=== PATIENT | male | born 1990 | race Caucasian/White ===

== ENCOUNTER 2018-03-02 18:35 | Emergency (ER) | payer OTHER, MEDICAID ==
[2018-03-02 18:43] VITALS: BP 146/88
--- NOTE | 2018-03-02 20:25 | ED Physician Documentation ---
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, and he bandaged it but it continues to bleed.), Today Timing - details: Abrupt onset, Still present (it did not want to stop bleeding , so here for eval.) Worsened by: Palpating Associated symptoms: No: Weakness, Numbness Similar symptoms before: Has not had sx before Recently seen: Not recently seen Review of Systems Neurologic: denies: Focal weakness, Numbness PD PAST MEDICAL HISTORY - Past Medical History Past Medical History: Yes Cardiovascular: None Respiratory: None Endocrine/Autoimmune: None : Kidney stones - Past Surgical History Past Surgical History: No - Present Medications Home Medications: Ambulatory Orders Medication Instructions Recorded Confirmed No Known Home Medications [No 03/02/18 03/02/18 Known Home Medications] - Allergies Allergies/Adverse Reactions: Allergies Allergy/AdvReac Type Severity Reaction Status Date / Time No Known Drug Allergies Allergy Verified 03/02/18 18:42 - Social History Does the pt smoke?: No Smoking Status: Never smoker Does the pt drink ETOH?: No Does the pt have substance abuse?: Yes - Immunizations Immunizations are current?: Yes PD ED PE NORMAL - Vitals Vital signs reviewed: Yes - General General: Alert and oriented X 3, No acute distress, Well developed/nourished - Derm Derm: Normal color, Warm and dry - Extremities Extremities: Other (right middle finger tip with partial thickness avulsion. Not at nailbed, is distal to that. No FB. ) - Neuro Neuro: Alert and oriented X 3, No motor deficit, No sensory deficit, Normal speech Results - Vitals Vitals: Vital Signs - 24 hr 03/02/18 03/02/18 18:39 21:03 Temperature 35.9 C L Heart Rate 86 Respiratory 18 17 Rate Blood Pressure 146/88 H O2 Saturation 95 Oxygen O2 Source Room air PD MEDICAL DECISION MAKING - ED course Complexity details: considered differential (the bleeding is about stopped here. Glue and steri-strips applied. His tetanus is updated. ), d/w patient Departure - Departure Disposition: 01 Home, Self Care Clinical Impression: Requires a booster tetanus Fingertip avulsion Qualifiers: Encounter type: initial encounter Qualified Code(s): S61.209A - Unspecified open wound of unspecified finger without damage to nail, initial encounter Condition: Stable Record reviewed to determine appropriate education?: Yes Instructions: ED Avulsion Dermal Comments: Let the tape and glue fall off on its own over a few days. Washing gently is okay. Tylenol or ibuprofen if needed for pains. He did receive a tetanus booster here. The skin should heal in over that area well as is not too deep of the wound. Recheck if signs of infection. Discharge Date/Time: 03/02/18 21:05
[2018-03-02] MEDS ORDERED: IBUPROFEN 600 MG TABLET PO STA (20:43)
[2018-03-02] MEDS ORDERED: ACETAMINOPHEN 325 MG TABLET PO STA (20:43)
[2018-03-02] MEDS ORDERED: TETANUS/DIPHTHERIA/PERTUSSIS 0.5 ML SYRINGE IM ONE (20:43)
== END 2018-03-02 21:05 | disposition home or self-care (01) ==
LOC: ED 18:35
DX: S61.210A Laceration without foreign body of right index finger without damage to nail, initial encounter (principal); W31.82XA Contact with other commercial machinery, initial encounter; Y99.0 Civilian activity done for income or pay
CPT/HCPCS: 1040M; 90471; 90715; 99282; 99283; A9270

== ENCOUNTER 2019-11-23 23:52 | Emergency (ER) | payer BC ==
[2019-11-23 23:59] VITALS: BP 153/77
--- NOTE | 2019-11-24 00:38 | ED Physician Documentation ---
History of Present Illness - Stated complaint Stated Complaint: HAND PX - Chief complaint Chief Complaint: Ext Problem - History obtained from History obtained from: Patient - History of Present Illness Timing: How many days ago (10) Improved by: nothing Worsened by: movement, particularly gripping/pinching motions/actions - Additonal information Additional information: c/o 10 days of gradual onset left hand pain. denies trauma. he is right hand dominant. pain is at left wrist and radiates to first three digits (thumb-middle fingers) Review of Systems Musculoskeletal: reports: Extremity pain. denies: Joint pain, Extremity swelling, Joint swelling Neurologic: denies: Focal weakness, Numbness PD PAST MEDICAL HISTORY - Past Medical History Past Medical History: Yes Cardiovascular: None Respiratory: None Neuro: None Endocrine/Autoimmune: None GI: None : Kidney stones HEENT: None Psych: None Musculoskeletal: None Derm: None - Past Surgical History Past Surgical History: No - Present Medications Home Medications: Ambulatory Orders Medication Instructions Recorded Confirmed No Known Home Medications 03/02/18 03/02/18 - Allergies Allergies/Adverse Reactions: Allergies Allergy/AdvReac Type Severity Reaction Status Date / Time No Known Drug Allergies Allergy Verified 11/23/19 23:59 - Social History Does the pt smoke?: No Smoking Status: Never smoker Does the pt drink ETOH?: No Does the pt have substance abuse?: Yes - Immunizations Immunizations are current?: Yes - POLST Patient has POLST: No PD ED PE NORMAL - Vitals Vital signs reviewed: Yes - General General: Alert and oriented X 3, No acute distress, Well developed/nourished - Derm Derm: Normal color, Warm and dry, No rash - Extremities Extremities: No deformity, No tenderness to palpate, Normal ROM s pain, No edema - Neuro Neuro: No motor deficit, No sensory deficit Results - Vitals Vitals: Oxygen O2 Source Room air PD MEDICAL DECISION MAKING - ED course Complexity details: considered differential, d/w patient ED course: unremarkable exam. Based on gradual onset and distribution of pain, would consider carpal tunnel syndrome more likely than alternative diagnoses at this time. Emergent testing not indicated at this time, instructed to return if worse, f/u with PMD next available appointment Departure - Departure Disposition: 01 Home, Self Care Clinical Impression: Wrist pain Condition: Good Instructions: ED Carpal Tunnel Forms: Activity restrictions Discharge Date/Time: 11/24/19 01:30
== END 2019-11-24 01:30 | disposition home or self-care (01) ==
LOC: ED 23:52
DX: M25.532 Pain in left wrist (principal)
CPT/HCPCS: 99282

== ENCOUNTER 2020-08-02 17:02 | Emergency (ER) | payer BC ==
--- NOTE | 2020-08-02 17:43 | ED Physician Documentation ---
History of Present Illness - Stated complaint Stated Complaint: RT HAND INJ - Chief complaint Chief Complaint: Ext Problem - Additonal information Additional information: 30-year-old male presents to the emergency department for evaluation of acute right hand pain after he punched a sheet rock wall last night and frustration. He is right-hand dominant no history of previous injury to this hand. He has mild swelling and tenderness over the mid fourth and fifth metacarpals. No deformity Review of Systems Constitutional: reports: Reviewed and negative Ears: reports: Reviewed and negative Nose: reports: Reviewed and negative Throat: reports: Reviewed and negative Cardiac: reports: Reviewed and negative Respiratory: reports: Dyspnea GI: reports: Reviewed and negative : reports: Reviewed and negative Skin: reports: Reviewed and negative Musculoskeletal: reports: Extremity pain (right hand), Extremity swelling (right hand) Neurologic: reports: Reviewed and negative PD PAST MEDICAL HISTORY - Past Medical History Cardiovascular: None Respiratory: None Neuro: None Endocrine/Autoimmune: None GI: None : Kidney stones HEENT: None Psych: None Musculoskeletal: None Derm: None - Past Surgical History Past Surgical History: No - Present Medications Home Medications: Ambulatory Orders Medication Instructions Recorded Confirmed Ibuprofen [Motrin] 600 mg PO Q6H PRN #30 tab 08/02/20 - Allergies Allergies/Adverse Reactions: Allergies Allergy/AdvReac Type Severity Reaction Status Date / Time No Known Drug Allergies Allergy Verified 08/02/20 17:22 - Social History Does the pt smoke?: No Smoking Status: Never smoker Does the pt drink ETOH?: No Does the pt have substance abuse?: Yes - Immunizations Immunizations are current?: Yes - POLST Patient has POLST: No PD ED PE EXPANDED - Extremities Extremities: Right hand (Mild tenderness over the right mid fourth fifth metacarpals. Mild swelling. 2+ distal radial pulse. Normal flexion extension of the wrist though painful.) Results - Vitals Vitals: Vital Signs - 24 hr 08/02/20 17:18 Temperature 36.4 C L Heart Rate 88 Respiratory 16 Rate Blood Pressure 129/68 O2 Saturation 99 Oxygen O2 Source Room air - Rads (name of study) right hand xr Radiology: EMP read indepedently (Mildly angulated distal fifth metacarpal fracture.) PD MEDICAL DECISION MAKING - ED course Complexity details: reviewed results, re-evaluated patient, considered differential, d/w patient, d/w family ED course: 30-year-old male presents the emergency department for acute right hand pain after punching a wall yesterday evening. On presentation he had tenderness over the fourth and fifth metacarpals. X-ray does show mildly angulated distal fifth metacarpal fracture. This gentleman was placed in ulnar gutter splint and will be referred to orthopedics for follow-up. Routine splint care and emergent return precautions discussed Departure - Departure Disposition: 01 Home, Self Care Clinical Impression: Metacarpal bone fracture Qualifiers: Encounter type: initial encounter Metacarpal bone: fifth Fracture type: closed Metacarpal location: other portion of metacarpal Fracture alignment: displaced Laterality: right Qualified Code(s): S62.396A - Other fracture of fifth metacarpal bone, right hand, initial encounter for closed fracture Condition: Stable Record reviewed to determine appropriate education?: Yes Instructions: ED Fx Hand Closed Ch Follow-Up: [facility] [Provider Group] Prescriptions: Ibuprofen [Motrin] 600 mg PO Q6H PRN #30 tab PRN Reason: Pain Comments: You do have a fracture of the distal fifth metacarpal in your right hand. Please stay in the splint at all times. If it gets wet return to emergency department to have it replaced. Please call the orthopedic department to get seen in follow-up within the next 7 to 10 days. I have prescribed ibuprofen for pain control. If at any point you feel that you are having increased pain, numbness tingling in your fingers, feel that the splint is not fitting appropriately or you have concerns of an infection please return to the ER for a second look
--- NOTE | 2020-08-02 18:16 | XRAY Report ---
PROCEDURE: Hand 3 View RT INDICATIONS: punched wall TECHNIQUE: 3 views of the hand(s) acquired. COMPARISON: None FINDINGS: Bones: There is a mildly displaced, moderately angulated fracture of the distal fifth metacarpal. No additional fractures or dislocations. No suspicious bony lesions. Soft tissues: Generalized soft tissue swelling is seen. IMPRESSION: Mildly displaced fracture involving the distal aspect of the fifth metacarpal, with moderate angulati on, which is consistent with the given history. Reviewed by: Dustin Esqueda MD on 08/02/2020 5:14 PM MARGARET Approved by: Dustin Esqueda MD on 08/02/2020 5:14 PM MARGARET Station ID: [id number]
[2020-08-02 18:27] VITALS: BP 125/89
== END 2020-08-02 18:34 | disposition home or self-care (01) ==
LOC: ED 17:02
DX: S62.306A Unspecified fracture of fifth metacarpal bone, right hand, initial encounter for closed fracture (principal); W22.8XXA Striking against or struck by other objects, initial encounter
CPT/HCPCS: 99283